=== PATIENT | male | born 1990 | race Caucasian/White ===

== ENCOUNTER 2022-07-11 01:11 | Inpatient (IN) | payer OTHER ==
[~2022-07-11] VITALS: Ht 175.3 cm; Wt 99.5 kg
[2022-07-11] MEDS ORDERED: ALBU90OI INH (01:37)
[2022-07-11 01:58] LABS: BASOPHILS ABSOLUTE AUTO 0.06 K/mm3 (0.00-0.23); BASOPHILS PERCENT AUTO 1 % (0-2); EOSINOPHILS ABSOLUTE AUTO 0.08 K/mm3 (0.00-0.68); EOSINOPHILS PERCENT AUTO 1 % (0-6); Hematocrit 41.1 % (37.0-53.0); Hemoglobin 13.9 g/dL (13.5-17.5); IMMATURE GRAN ABSOLUTE AUTO 0.05 K/mm3 (0.00-0.10); IMMATURE GRAN PERCENT AUTO 1 % (0-1); LYMPHOCYTES ABSOLUTE AUTO 2.11 K/mm3 (0.84-5.20); LYMPHOCYTES PERCENT AUTO 24 % (21-46); MONOCYTES ABSOLUTE AUTO 0.65 K/mm3 (0.16-1.47); MONOCYTES PERCENT AUTO 7 % (4-13); Mean Corpuscular HGB 30.3 pg (26.0-34.0); Mean Corpuscular HGB Conc 33.8 g/dL (31.5-36.5); Mean Corpuscular Volume 90 fL (80-100); NEUTROPHILS ABSOLUTE AUTO 5.87 K/mm3 (1.96-9.15); NEUTROPHILS PERCENT AUTO 67 % (41-73); Platelet Count 243 K/mm3 (150-400); RDW Coefficient Variation 13.3 % (11.7-14.2); RDW Standard Deviation 43.9 fL (35.1-46.3); Red Blood Cell Count 4.59 M/mm3 (4.30-5.90); White Blood Cell Count 8.82 K/mm3 (4.00-11.30)
[2022-07-11 02:17] LABS: Albumin, Blood 3.3 g/dL (3.4-5.0); Bilirubin, Total 0.4 mg/dL (0.1-1.0); Bun/Creatinine Ratio 22.5 (12.0-20.0); Calcium, Blood 8.1 mg/dL (8.5-10.1); Creatinine, Blood 0.8 mg/dL (0.60-1.20); Globulin, Blood 3.4 g/dL (2.2-4.0); Potassium, Blood 3.4 mmol/L (3.5-5.5); Total Protein, Blood 6.7 g/dL (6.4-8.2)
[2022-07-11 05:13] LABS: Influenza A, PCR NEGATIVE (NEGATIVE); Influenza B, PCR NEGATIVE (NEGATIVE); Resp Syncytial Virus, PCR NEGATIVE (NEGATIVE); SARS-Cov-2 (COVID-19) PCR, MMC NEGATIVE (NEGATIVE)
[2022-07-11 06:54] LABS: Creatine Kinase MB 4.7 ng/mL (0.0-3.6); Creatine Kinase MB Index 1.5 (0.0-4.0)
[2022-07-11 10:06] LABS: Base Excess Venous -0.4 mmol/L; Bicarbonate Venous 24.3 mmol/L (24.0-30.0); PCO2 Venous 37.9 mmHg (38-42); pH Blood Venous 7.41 (7.34-7.37)
[2022-07-11 16:32] LABS: CPK Creatine Kinase 171 U/L (39-308)
--- NOTE | 2022-07-11 17:00 | NUR ---
PT ARRIVED TO ROOM FROM ED AT 1500 AND ABLE TO TRANSFER SELF IN TO BED. 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 IRRITABLE MOOD. ORIENTED TO ROOM. ATE SOME FOOD, ADMIT COMPLETED AND FELL ASLEEP.
--- NOTE | 2022-07-11 17:01 | NUR ---
TOOK OVER CARE OF PT AT 1655 FROM DEANNE WU. PT RESTING IN BED AT THIS TIME WITH CALL LIGHT IN REACH. NO DISTRESS NOTED WILL CONTINUE TO MONITOR.
--- NOTE | 2022-07-11 18:21 | NUR ---
Patient ate dinner without complaints of n/v- currently laying in bed with eyes closed, no s/s distress- bed low position, call light within reach
--- NOTE | 2022-07-11 18:35 | NUR ---
call from tele- pt hr increased to 190 for 14 seconds- pt laying in bed/no s/s distress
--- NOTE | 2022-07-11 23:26 | NUR ---
REPORT GIVEN TO DAVID GALVIN RN, TO ASSUME CARE.
--- NOTE | 2022-07-11 23:45 | NUR ---
ASSUMED CARE OF PT. PT REPORTS HE IS "DOING BETTER." WHEN ASKED WHAT THIS MEANS, HE REPORTS "I HAVE FOOD." CALL LIGHT WITHIN REACH.
--- NOTE | 2022-07-12 03:05 | NUR ---
PT AWOKE, CALLED SAYING HE COULDN'T BREATH. PT IN LOW SEMI FOWLERS POSITION - TACHYPNIC. RT CALLED FOR BREATHING TREATMENT. PT INSTRUCTED ON SITTING AT THE EDGE OF THE BED, AND IN TRIPOD POSITION. PT REPORTS HE HAS ANXIETY/PANIC ATTACKS ALSO. INSTRUCTED PT ON CALMING TECHNIQUES. AFTER THESE TECHNIQUES, PT REPORTED FEELING "BETTER." SAID "THANK YOU." AWAITING ON RT. CALL LIGHT WITHIN REACH. BED IN LOW POSITION. FLUIDS AT BEDSIDE.
--- NOTE | 2022-07-12 03:30 | NUR ---
REPORT FROM RESPIRATORY, DURING HER TREATMENT, IS PT REPORTED CHEST PAIN WITH RADIATION TO BOTH ARMS. RN CALLED TO ROOM. PT REPORTS PAIN 6/10 TO MID STERNAL CHEST, BILATERAL ARM PAIN - PT DENIES JAW PAIN OR NAUSEA. EKG BEING PERFORMED. SEE VS. TROPONIN SCHEDULED FOR AM LAB DRAW. CALL PLACED TO [facility] [employer] FARMER - SHE REPORTED NSR.
--- NOTE | 2022-07-12 03:40 | NUR ---
I SPOKE TO DR. FABIAN, AND REPORTED EKG RESULTS, CHEST PAIN/ARM PAIN, LAST TROPONIN NORMAL, REPEAT TROPONIN THIS AM, VSS, AND HISTORY OF [facility], AND [facility], PCU [employer] OPERATOR HELPER REPORTS NSR. DR. FABIAN REPORTED TO "JUST WATCH HIM." FLUIDS AT BEDSIDE. PT THEN REQUESTING FOOD. CALL LIGHT WITHIN REACH. WILL CONTINUE TO MONITOR.
--- NOTE | 2022-07-12 05:00 | NUR ---
PT ON THE TELEPHONE, REPORTS HE IS "DOING FINE. THANK YOU." CALL LIGHT WITHIN REACH. BED IN LOW POSITION.
[2022-07-12 05:02] LABS: BASOPHILS ABSOLUTE AUTO 0.05 K/mm3 (0.00-0.23); BASOPHILS PERCENT AUTO 0 % (0-2); EOSINOPHILS ABSOLUTE AUTO 0.01 K/mm3 (0.00-0.68); EOSINOPHILS PERCENT AUTO 0 % (0-6); Hematocrit 43.8 % (37.0-53.0); Hemoglobin 14.3 g/dL (13.5-17.5); IMMATURE GRAN ABSOLUTE AUTO 0.08 K/mm3 (0.00-0.10); IMMATURE GRAN PERCENT AUTO 1 % (0-1); LYMPHOCYTES ABSOLUTE AUTO 2.24 K/mm3 (0.84-5.20); LYMPHOCYTES PERCENT AUTO 14 % (21-46); MONOCYTES ABSOLUTE AUTO 1.24 K/mm3 (0.16-1.47); MONOCYTES PERCENT AUTO 8 % (4-13); Mean Corpuscular HGB 29.7 pg (26.0-34.0); Mean Corpuscular HGB Conc 32.6 g/dL (31.5-36.5); Mean Corpuscular Volume 91 fL (80-100); Mean Platelet Volume 10.9 fL (9.1-12.4); NEUTROPHILS ABSOLUTE AUTO 12.87 K/mm3 (1.96-9.15); NEUTROPHILS PERCENT AUTO 78 % (41-73); Platelet Count 273 K/mm3 (150-400); RDW Coefficient Variation 13.7 % (11.7-14.2); RDW Standard Deviation 46.1 fL (35.1-46.3); Red Blood Cell Count 4.81 M/mm3 (4.30-5.90); White Blood Cell Count 16.49 K/mm3 (4.00-11.30)
[2022-07-12 05:29] LABS: Albumin/Globulin Ratio 0.8 (0.8-1.8); Bilirubin, Total 0.3 mg/dL (0.1-1.0); Bun/Creatinine Ratio 31.4 (12.0-20.0); Calcium, Blood 8.1 mg/dL (8.5-10.1); Creatinine, Blood 0.73 mg/dL (0.60-1.20); Globulin, Blood 3.7 g/dL (2.2-4.0); Phosphorus, Blood 2.8 mg/dL (2.5-4.9); Potassium, Blood 3.9 mmol/L (3.5-5.5); Total Protein, Blood 6.7 g/dL (6.4-8.2)
--- NOTE | 2022-07-12 06:15 | NUR ---
SHIFT SUMMARY - PT HAD ONE EPISODE OF FEELING "LIKE HE COULDN'T BREATH." PT WAS ALSO HAVING A PANIC ATTACK - BUT THIS ALL RESOLVED WITH CALMING TECHNIQUES AND RESPIRATORY THERAPY INTERVENTION. PT HAD CHEST PAIN/ARM PAIN SHORTLY AFTER THIS ABOVE EPISODE - SEE PREVIOUS NOTE REGARDING CHEST PAIN. PT REPORTED FEELING BETTER THIS AM. TROPONIN WITHIN NORMAL LIMITS THIS AM. CALL LIGHT WITHIN REACH. BED IN LOW POSITION. FLUIDS/FOOD AT BEDSIDE. WILL CONTINUE TO MONITOR UNTIL AM SHIFT CHANGE.
--- NOTE | 2022-07-12 19:43 | NUR ---
SHIFT SUMMARY PT HAD WHAT APPEARED TO BE A PANIC ATTACK THIS MORNING. NEB TX GIVEN AND TALKED WITH PT FOR SEVERAL MINUTES AND IT APPEARED TO IMPROVE. SAYS HE THINKS HE IS GOING TO LEAVE TOMORROW NO MATTER WHAT. REPORTS PAIN TO BACK IS BAD. TRAMADOL ORDERED AND GIVEN. K PAD OFFERED AND GIVEN. STATED NOTHING HELPED. ENCOURAGED HIM TO GET UP AND WALK AROUND ON THE UNIT AND REPORTED PAIN IN BACK BETTER AFTER. SOB WITH OVEREXERTION. IV LASIX GIVEN AND VOIDED A LARGE ABOUNT.
[2022-07-13 05:16] LABS: Anion Gap 7 mmol/L (6-16); Blood Urea Nitrogen 24 mg/dL (8-24); Bun/Creatinine Ratio 30.2 (12.0-20.0); CO2, Blood 25 mmol/L (21-32); Calcium, Blood 8.4 mg/dL (8.5-10.1); Chloride, Blood 106 mmol/L (98-108); Glomerular Filtration Rate 119 (60-); Glucose, Blood 164 mg/dL (70-99); Phosphorus, Blood 3.3 mg/dL (2.5-4.9); Potassium, Blood 3.7 mmol/L (3.5-5.5); Sodium, Blood 138 mmol/L (136-145)
--- NOTE | 2022-07-13 05:48 | NUR ---
PT ANXIOUS T/O NIGHT ENCOURAGED TO AMBULATE- PT C/O PAIN IN LOWER BACK WHICH IS CHRONIC -
[2022-07-13] MEDS ORDERED: NICO21TP TOP (13:40)
[2022-07-13] MEDS ORDERED: FURO40 PO (13:40)
[2022-07-13] MEDS ORDERED: METO25ER PO (13:40)
[2022-07-13] MEDS ORDERED: ENTRESTO 24 MG1 EACH PO (13:41)
[2022-07-13] MEDS ORDERED: POTCHL20ER PO (13:41)
--- NOTE | 2022-07-13 15:04 | NUR ---
PATIENT DISCHARGED HOME THIS AFTERNOON. TELE REMOVED AND SENT TO PCU. PATIENT EDUCATED ON ABSTINENCE FROM [facility]. EDUCATION PROVIDED ON NEW PRESCRIPTIONS. DC ORDERS INCLUDE PATIENT TO GET A PCP AND CANS VACUUM TESTER AND HAVING HIS PCP ORDER A BMP AND MONITOR KIDNEY FUNCTION WHILE ON ENTRESTO. PATIENT EXPLAINS HE IS LEAVING FOR [place] WHERE HE LIVES.
== END 2022-07-13 14:50 | disposition home or self-care (01) | DRG 291 ==
LOC: ER 01:11 → MEDS 06:09 → ERHOLD 06:09 → MEDS 14:50
PROVIDERS: Internal Medicine; Student in an Organized Health Care Education/Training Program; ADMIT Internal Medicine
DX: I50.21 Acute systolic (congestive) heart failure (principal); J96.01 Acute respiratory failure with hypoxia; E87.1 Hypo-osmolality and hyponatremia; F17.210 Nicotine dependence, cigarettes, uncomplicated; Z20.822 Contact with and (suspected) exposure to COVID-19; E87.6 Hypokalemia; F12.90 Cannabis use, unspecified, uncomplicated; J45.20 Mild intermittent asthma, uncomplicated; F15.10 Other stimulant abuse, uncomplicated
CPT/HCPCS: 0241U; 36415; 71045; 71046; 80053; 80069; 82550; 82553; 82803; 83880; 84100; 84145; 84484; 85025; 87040; 87070; 87205; 93005; 93010; 93306; 94640; 94664; 94760; 96365; 96366; 96368; 96372-59; 96375; 99285-25; A9270; J0456; J0696; J1100; J1650; J1940; J3370; J3480; J7050

== ENCOUNTER 2022-08-04 14:56 | Emergency (ER) | payer OTHER ==
[~2022-08-04] VITALS: Ht 175.3 cm; Wt 97.5 kg
[~2022-08-04 14:56] MED LIST: ALBU90OI INH; ENTRESTO 24 MG1 EACH PO; FURO40 PO; METO25ER PO; NICO21TP TOP; POTCHL20ER PO
[2022-08-04 15:52] LABS: BASOPHILS ABSOLUTE AUTO 0.07 K/mm3 (0.00-0.23); BASOPHILS PERCENT AUTO 1 % (0-2); EOSINOPHILS ABSOLUTE AUTO 0.24 K/mm3 (0.00-0.68); EOSINOPHILS PERCENT AUTO 2 % (0-6); Hematocrit 43.5 % (37.0-53.0); Hemoglobin 14.5 g/dL (13.5-17.5); IMMATURE GRAN ABSOLUTE AUTO 0.04 K/mm3 (0.00-0.10); IMMATURE GRAN PERCENT AUTO 0 % (0-1); LYMPHOCYTES ABSOLUTE AUTO 2.06 K/mm3 (0.84-5.20); LYMPHOCYTES PERCENT AUTO 20 % (21-46); MONOCYTES ABSOLUTE AUTO 0.73 K/mm3 (0.16-1.47); MONOCYTES PERCENT AUTO 7 % (4-13); Mean Corpuscular HGB Conc 33.3 g/dL (31.5-36.5); Mean Corpuscular Volume 90 fL (80-100); Mean Platelet Volume 10.2 fL (9.1-12.4); NEUTROPHILS ABSOLUTE AUTO 7.31 K/mm3 (1.96-9.15); NEUTROPHILS PERCENT AUTO 70 % (41-73); Platelet Count 236 K/mm3 (150-400); RDW Standard Deviation 42.7 fL (35.1-46.3); Red Blood Cell Count 4.84 M/mm3 (4.30-5.90); White Blood Cell Count 10.45 K/mm3 (4.00-11.30)
[2022-08-04 16:02] LABS: Albumin, Blood 3.1 g/dL (3.4-5.0); Albumin/Globulin Ratio 0.8 (0.8-1.8); Bilirubin, Total 0.4 mg/dL (0.1-1.0); Bun/Creatinine Ratio 19.7 (12.0-20.0); Calcium, Blood 8.4 mg/dL (8.5-10.1); Creatinine, Blood 0.86 mg/dL (0.60-1.20); Globulin, Blood 3.8 g/dL (2.2-4.0); Potassium, Blood 4.1 mmol/L (3.5-5.5); Total Protein, Blood 6.9 g/dL (6.4-8.2)
[2022-08-04 16:36] LABS: Influenza A, PCR NEGATIVE (NEGATIVE); Influenza B, PCR NEGATIVE (NEGATIVE); Resp Syncytial Virus, PCR NEGATIVE (NEGATIVE); SARS-Cov-2 (COVID-19) PCR, MMC NEGATIVE (NEGATIVE)
[2022-08-04] MEDS ORDERED: ALBU90OI INH (18:26)
[2022-08-04] MEDS ORDERED: LASIX40 MG PO (18:26)
[2022-08-04] MEDS ORDERED: POTA10T PO (18:28)
== END 2022-08-04 18:37 | disposition home or self-care (01) ==
LOC: ER 14:56
PROVIDERS: Student in an Organized Health Care Education/Training Program
DX: I50.1 Left ventricular failure, unspecified (principal); J45.909 Unspecified asthma, uncomplicated; F17.210 Nicotine dependence, cigarettes, uncomplicated; Z79.899 Other long term (current) drug therapy; Z20.822 Contact with and (suspected) exposure to COVID-19
CPT/HCPCS: 0241U; 36415; 71045; 71260; 80053; 83880; 84484; 85025; 85379; 93005; 93010; 94640; 94664; J1940; Q9967

== ENCOUNTER 2022-08-29 00:44 | Inpatient (IN) | payer OTHER ==
[~2022-08-29] VITALS: Ht 175.3 cm; Wt 98.9 kg
[~2022-08-29 00:44] MED LIST changes: +LASIX40 MG PO; +POTA10T PO
--- NOTE | 2022-08-29 03:11 | NUR ---
ADMIT NOTE HANDOFF RECEIVED FROM [facility] DEANNE SUTTON. PT IS A DIRECT ADMIT. HOSPITALIST AND RESIDENT IN ROOM FOR ASSESSMENT SOON UPON PT'S ARRIVAL. PT ORIENTED TO UNIT. PERSONAL POSSESSIONS WITH PT. CALL BUTTON WITHIN REACH.
[2022-08-29 05:58] LABS: BASOPHILS ABSOLUTE AUTO 0.07 K/mm3 (0.00-0.23); BASOPHILS PERCENT AUTO 1 % (0-2); EOSINOPHILS ABSOLUTE AUTO 0.18 K/mm3 (0.00-0.68); EOSINOPHILS PERCENT AUTO 2 % (0-6); Hematocrit 43.5 % (37.0-53.0); Hemoglobin 14.3 g/dL (13.5-17.5); IMMATURE GRAN ABSOLUTE AUTO 0.03 K/mm3 (0.00-0.10); IMMATURE GRAN PERCENT AUTO 0 % (0-1); LYMPHOCYTES ABSOLUTE AUTO 2.51 K/mm3 (0.84-5.20); LYMPHOCYTES PERCENT AUTO 27 % (21-46); MONOCYTES ABSOLUTE AUTO 0.68 K/mm3 (0.16-1.47); MONOCYTES PERCENT AUTO 7 % (4-13); Mean Corpuscular HGB 29.5 pg (26.0-34.0); Mean Corpuscular HGB Conc 32.9 g/dL (31.5-36.5); Mean Corpuscular Volume 90 fL (80-100); Mean Platelet Volume 10.7 fL (9.1-12.4); NEUTROPHILS ABSOLUTE AUTO 5.88 K/mm3 (1.96-9.15); NEUTROPHILS PERCENT AUTO 63 % (41-73); Platelet Count 245 K/mm3 (150-400); RDW Coefficient Variation 13.3 % (11.7-14.2); RDW Standard Deviation 43.8 fL (35.1-46.3); Red Blood Cell Count 4.85 M/mm3 (4.30-5.90); White Blood Cell Count 9.35 K/mm3 (4.00-11.30)
[2022-08-29 06:22] LABS: Albumin/Globulin Ratio 0.8 (0.8-1.8); Bilirubin, Total 0.6 mg/dL (0.1-1.0); Calcium, Blood 8.6 mg/dL (8.5-10.1); Creatinine, Blood 1.1 mg/dL (0.60-1.20); Globulin, Blood 3.6 g/dL (2.2-4.0); Potassium, Blood 3.9 mmol/L (3.5-5.5); Total Protein, Blood 6.6 g/dL (6.4-8.2)
--- NOTE | 2022-08-29 16:32 | NUR ---
SHIFT SUMMARY- VSS. PT APPETITE OK. CALL APROPIATELY. SLEPT MOST OF SHIFT. NO C/O PAIN DURING SHIFT. IV PATENT. INDEPENDANT IN ROOM. SOME WHEEZING HEARD IN L SIDE LUNG/ULL. EDEMA 3+ BLL. CALL LIGHT IN REACH. WILL CONTINUE TO MONITOR.
--- NOTE | 2022-08-30 03:24 | NUR ---
Patient resting in room, no complaints of pain or discomfort.
[2022-08-30 06:22] LABS: Bun/Creatinine Ratio 18.3 (12.0-20.0); Calcium, Blood 8.9 mg/dL (8.5-10.1); Creatinine, Blood 1.15 mg/dL (0.60-1.20); Magnesium, Blood 2.3 mg/dL (1.6-2.4); Potassium, Blood 3.8 mmol/L (3.5-5.5)
--- NOTE | 2022-08-30 12:58 | NUR ---
PT RESTING QUIETLY AT START OF SHIFT. WOKE EASILY FOR CARE. INDEPENDENT IN AND TO BTHRM. NO C/O, JUST REQUESTED MORE FOOD. DR LANG IN TO SEE PT AND DISCUSS PLAN OF CARE. PT CLEAR FOR D/C. PT TO OBTAIN AND F/U WITH PCP. D/C ORDERS PLACED. MEDS FAXED TO [facility] IN [facility], PER PT REQUEST. TOOLROOM KEEPER IN TO TALK WITH PT. LOCAL DR'S LIST OBTAINED AND PROVIDED FOR PT. TRANSPORTATION ARRANGED TO [facility], PER PT REQUEST. PHARMACY IN TO TALK WITH PT AND DISCUSS D/C MEDICATIONS. IV SITE AND TELE D/C'D WNL'S. PT ABLE TO DRESS HIMSELF AND GATHER BELONGINGS. PT ASSISTED DOWN TO ER WAITING AREA VIA W/C, FOR TAXI. DENIED FURTHER NEEDS.
== END 2022-08-30 11:58 | disposition home or self-care (01) | DRG 293 ==
LOC: MEDS 00:44
PROVIDERS: Family Medicine; Student in an Organized Health Care Education/Training Program; ADMIT Family Medicine
DX: I50.23 Acute on chronic systolic (congestive) heart failure (principal); J45.909 Unspecified asthma, uncomplicated; F15.10 Other stimulant abuse, uncomplicated; F17.210 Nicotine dependence, cigarettes, uncomplicated; Z79.899 Other long term (current) drug therapy; Z79.51 Long term (current) use of inhaled steroids; Z79.01 Long term (current) use of anticoagulants
CPT/HCPCS: 36415; 80048; 80053; 83735; 85025; 96374; A9270; G0378; J1650; J1940

== ENCOUNTER 2024-04-02 08:23 | Inpatient (IN) | payer OTHER ==
[~2024-04-02] VITALS: Ht 175.3 cm; Wt 92.6 kg
[2024-04-02] MEDS ORDERED: Acetaminophen 650 MG Supp PR PRN (09:15)
[2024-04-02] MEDS ORDERED: Acetaminophen 325 MG TABLET PO PRN (09:20)
[2024-04-02] MEDS ORDERED: Zolpidem Tartrate 5 MG Tab PO PRN (09:20)
[2024-04-02] MEDS ORDERED: Ondansetron HCl 2 MG / ML 2ML Vial IV PRN (09:20)
[2024-04-02] MEDS ORDERED: Morphine Sulfate IR 15 MG Tab PO PRN (09:20)
[2024-04-02] MEDS ORDERED: Furosemide 10 MG/ML 4ML Vial IV ONE (09:40)
[2024-04-02 10:00] VITALS: BP 102/62
[2024-04-02 10:01] LABS: Anti-Xa UFH, PHA Monitoring <0.10 IU/mL; International Normalized Ratio 1.12; Prothrombin Time Results 11.9 Sec (9.7-11.5)
[2024-04-02] MEDS ORDERED: Dose Adjust by Pharmacy XX STA (10:07)
[2024-04-02] MEDS ORDERED: Heparin Sodium,Porcine/0.5 NS 500 ML IV SCH (10:10)
[2024-04-02] MEDS ORDERED: Heparin Sodium 5000 Units/ML 1ML MDV IV ONE (10:10)
[2024-04-02 10:27] LABS: BASOPHILS ABSOLUTE AUTO 0.07 K/mm3 (0.00-0.23); BASOPHILS PERCENT AUTO 1 % (0-2); EOSINOPHILS ABSOLUTE AUTO 0.17 K/mm3 (0.00-0.68); EOSINOPHILS PERCENT AUTO 1 % (0-6); Hematocrit 42.7 % (37.0-53.0); Hemoglobin 13.8 g/dL (13.5-17.5); IMMATURE GRAN ABSOLUTE AUTO 0.03 K/mm3 (0.00-0.10); IMMATURE GRAN PERCENT AUTO 0 % (0-1); LYMPHOCYTES ABSOLUTE AUTO 1.25 K/mm3 (0.84-5.20); LYMPHOCYTES PERCENT AUTO 10 % (21-46); MONOCYTES ABSOLUTE AUTO 0.87 K/mm3 (0.16-1.47); MONOCYTES PERCENT AUTO 7 % (4-13); Mean Corpuscular HGB Conc 32.3 g/dL (31.5-36.5); Mean Corpuscular Volume 87 fL (80-100); Mean Platelet Volume 10.7 fL (9.1-12.4); NEUTROPHILS ABSOLUTE AUTO 9.72 K/mm3 (1.96-9.15); NEUTROPHILS PERCENT AUTO 80 % (41-73); Platelet Count 222 K/mm3 (150-400); RDW Coefficient Variation 15.1 % (11.7-14.2); RDW Standard Deviation 47.7 fL (35.1-46.3); Red Blood Cell Count 4.92 M/mm3 (4.30-5.90); White Blood Cell Count 12.11 K/mm3 (4.00-11.30)
[2024-04-02] MEDS ORDERED: ALBU2.5V5 INH (11:09)
[2024-04-02] MEDS ORDERED: ATOR40TA PO (11:10)
[2024-04-02] MEDS ORDERED: BUDESONIDE-FO10.2 G3 INH (11:12)
[2024-04-02] MEDS ORDERED: BUSP5 PO (11:13)
[2024-04-02] MEDS ORDERED: [UNRECOGNIZED DRUG - OTHER] PO (11:16)
[2024-04-02] MEDS ORDERED: JARDIANCE10 MG PO (11:17)
[2024-04-02] MEDS ORDERED: Isosorbide Mono30 MG PO (11:17)
[2024-04-02] MEDS ORDERED: Lisinopril2.5 MG PO (11:19)
[2024-04-02] MEDS ORDERED: MAGNESIUM OXID400 M1 PO (11:20)
[2024-04-02] MEDS ORDERED: METO2.5 PO (11:21)
[2024-04-02] MEDS ORDERED: METO50ER PO (11:22)
[2024-04-02] MEDS ORDERED: NITR.4SL SL (11:23)
[2024-04-02] MEDS ORDERED: ONDA4 PO (11:23)
[2024-04-02] MEDS ORDERED: POTCHL20ER PO (11:24)
[2024-04-02] MEDS ORDERED: TORSE20 PO (11:25)
[2024-04-02] MEDS ORDERED: TIOT18 INH (11:25)
[2024-04-02] MEDS ORDERED: TRAZ50 PO (11:26)
[2024-04-02] MEDS ORDERED: TraZODone HCl 100 MG Tab PO PRN (11:55)
[2024-04-02] MEDS ORDERED: Nitroglycerin 0.4 MG SUBL SL PRN (12:00)
[2024-04-02] MEDS ORDERED: Tiotropium Bromide 2.5 MCG/ACT MIST INHAL (10 ACT/4 GM) INH SCH (12:00)
[2024-04-02] MEDS ORDERED: Ipratropium/Albuterol SulF 2.5-0.5MG/3 ML Amp INH SCH (12:10)
[2024-04-02] MEDS ORDERED: Budesonide 1 MG/2 ML RESP INH SCH (12:15)
[2024-04-02] MEDS ORDERED: Albuterol 2.5 MG/3 ML VIAL INH PRN (12:15)
[2024-04-02] MEDS ORDERED: Mometasone/Formoterol MDI 200/5 mcg 13 GM INH SCH (12:25)
[2024-04-02 12:39] VITALS: BP 111/88
[2024-04-02] MEDS ORDERED: BusPIRone HCl 5 MG Tab PO SCH (14:00)
[2024-04-02] MEDS ORDERED: Famotidine 20 MG Tab PO SCH (16:30)
--- NOTE | 2024-04-02 16:44 | NUR ---
PT ARRIVED TO PCU 05 AT 0945 VIA EMS FROM [facility]. PT IS A&OX3, AXIOUS, DYSPNIC WITH EXERTION. THIS RN HELPED PT SETTLE INTO BED, ASSESSMENT COMPLETED AND VS TAKEN. SEE DOCUMENTATION. DR DHALIWAL NOTIFIED OF PT'S ARRIVAL AND SHE IS AT BEDSIDE QUICKLY TO EVALUATE. ORDERS PLACED. DR REID ON UNIT AND RECEIVED DIRECT CONSULT FROM DR DHALIWAL, MORE ORDERS PLACED. LABS AND ECHO COMPLETED. HEPARIN GTT HUNG. PT MEDICATED PER MD ORDERS AND APPEARED TO BE RESTING COMFORTABLY IN BED FOR THE REST OF THE AFTERNOON. THIS RN REVIEWED DR REID'S CONSULT NOTE FOR TODAY, CALLED DR DHALIWAL REGARDING THE HEPARIN GTT. OK TO DISCONTINUE AT THIS TIME. PLEASE REVIEW DR REID'S CONSULT NOTE FOR DETAILS. PT IS NOTED TO HAVE AN ODD AFFECT, OFTEN CRYING WHEN STAFF IS IN THE ROOM, BUT SLEEPING WHEN LEFT UNDISTURBED. CRIES OUT DURING LAB DRAWS. ABLE TO MAKE NEEDS KNOWN AND USE CALL LIGHT EFFECTIVELY. ANXIOUS AT TIMES. COOPERATIVE WITH CARE. 1600ML/DAY FLUID RESTRICTION, PT IS NOT COMPLIANT WITH THIS. NO ACUTE CHANGES T/O THE SHIFT. WILL GIVE REPORT TO NOC SHIFT RN.
[2024-04-02 17:17] VITALS: BP 110/77
[2024-04-02] MEDS ORDERED: Bumetanide 0.25 MG/ML 4ML ViaL IV SCH (18:00)
[2024-04-02 20:08] VITALS: BP 109/75
[2024-04-02] MEDS ORDERED: Lactobacil 2-S.Thermo-Bifido 1 1 Cap PO SCH (21:00)
[2024-04-02] MEDS ORDERED: Metoprolol Tartrate 25 MG Tab PO SCH (21:00)
[2024-04-03 00:33] VITALS: BP 108/77
[2024-04-03 01:31] LABS: U Amphetamine Screen DETECTED; U Barbituate Screen Not Detected; U Benzodiazapine Screen Not Detected; U Buprenorphine Screen Not Detected; U Cannabinoids Screen Not Detected; U Cocaine Screen Not Detected; U Methadone Screen Not Detected; U Methamphetamine Screen DETECTED; U Opiates Screen DETECTED; U Oxycodone Screen Not Detected; U Phencyclidine Screen Not Detected
[2024-04-03 03:19] VITALS: BP 105/74
[2024-04-03 04:38] LABS: BASOPHILS ABSOLUTE AUTO 0.07 K/mm3 (0.00-0.23); BASOPHILS PERCENT AUTO 1 % (0-2); EOSINOPHILS ABSOLUTE AUTO 0.19 K/mm3 (0.00-0.68); EOSINOPHILS PERCENT AUTO 2 % (0-6); Hematocrit 43.1 % (37.0-53.0); Hemoglobin 13.8 g/dL (13.5-17.5); IMMATURE GRAN ABSOLUTE AUTO 0.03 K/mm3 (0.00-0.10); IMMATURE GRAN PERCENT AUTO 0 % (0-1); LYMPHOCYTES ABSOLUTE AUTO 1.73 K/mm3 (0.84-5.20); LYMPHOCYTES PERCENT AUTO 17 % (21-46); MONOCYTES ABSOLUTE AUTO 0.72 K/mm3 (0.16-1.47); MONOCYTES PERCENT AUTO 7 % (4-13); Mean Corpuscular HGB 28.2 pg (26.0-34.0); Mean Corpuscular Volume 88 fL (80-100); Mean Platelet Volume 10.4 fL (9.1-12.4); NEUTROPHILS ABSOLUTE AUTO 7.19 K/mm3 (1.96-9.15); NEUTROPHILS PERCENT AUTO 72 % (41-73); Platelet Count 213 K/mm3 (150-400); RDW Coefficient Variation 15.6 % (11.7-14.2); RDW Standard Deviation 50.6 fL (35.1-46.3); Red Blood Cell Count 4.89 M/mm3 (4.30-5.90); White Blood Cell Count 9.93 K/mm3 (4.00-11.30)
[2024-04-03 05:19] LABS: Albumin, Blood 2.9 g/dL (3.4-5.0); Albumin/Globulin Ratio 0.7 (0.8-1.8); Bilirubin, Total 0.7 mg/dL (0.1-1.0); Bun/Creatinine Ratio 22.8 (12.0-20.0); Calcium, Blood 8.5 mg/dL (8.5-10.1); Creatinine, Blood 0.97 mg/dL (0.60-1.20); Globulin, Blood 4.1 g/dL (2.2-4.0); Potassium, Blood 2.8 mmol/L (3.5-5.5)
[2024-04-03] MEDS ORDERED: NS 250 ML IV PRN (05:50)
--- NOTE | 2024-04-03 05:54 | NUR ---
SHIFT SUMMARY PATIENT LETHARGIC AND DROWSY OVERNIGHT, ORIENTED X4. PATIENT DENIED HAVING ANY CHEST PAIN OR SHORTNESS OF BREATH. VITAL SIGNS STABLE, NO EVENTS ON TELE. INFORMED DR NEGRON THIS MORNING THAT THE PATIENT'S POTASSIUM WAS 2.8 THIS MORNING. NO OTHER ISSUES NOTED. WILL CONTINUE TO MONITOR. CALL LIGHT WITHIN REACH.
[2024-04-03] MEDS ORDERED: Potassium Chl 20MEQ/Water100ML 100 ML IV ONE (06:00)
[2024-04-03] MEDS ORDERED: Potassium Chloride 10 Meq Tablet SA PO SCH (06:00)
[2024-04-03 08:15] VITALS: BP 105/83
[2024-04-03] MEDS ORDERED: Metolazone 2.5 MG Tab PO ONE (08:30)
[2024-04-03] MEDS ORDERED: OxyCODONE HCL 5 MG TAB PO PRN (08:30)
[2024-04-03] MEDS ORDERED: Nicotine 21 MG PATCH TOP SCH (09:00)
[2024-04-03] MEDS ORDERED: Empagliflozin 10 MG TAB PO SCH (09:00)
[2024-04-03] MEDS ORDERED: Isosorbide Mononitrate 30 MG TABCR PO SCH (09:00)
[2024-04-03] MEDS ORDERED: Atorvastatin 40 MG Tab PO SCH (09:00)
[2024-04-03 09:54] LABS: Bun/Creatinine Ratio 22.4 (12.0-20.0); Calcium, Blood 8.6 mg/dL (8.5-10.1); Creatinine, Blood 0.98 mg/dL (0.60-1.20); Potassium, Blood 3.5 mmol/L (3.5-5.5)
--- NOTE | 2024-04-03 10:33 | NUR ---
AM NOTE this rn assumed care at 0700. bp stable. ferbiel at 100.3, see vital section. spo2 >94% on room air. tele sinustach 100s. patient is alert and oriented x4. neuro is intact. patient is able to uses call light. denies chest pain/pressure or shortness of breath. reports generalized pain and is medicated per emar. see emar for addmistration and reassessment. patient is independent in adls. patient mood/affect is liable, withdrawn, irritable, and neutral. patient is cooperative with care. see shift assessment for further detials. patient had a shower this am. plan of care up to date at this time.
--- NOTE | 2024-04-03 12:17 | NUR ---
UPDATE md king in to see patient. patient switched to medical status. md king will be in contact with cardiology to see if patient is okay to discharge today.
[2024-04-03 16:36] VITALS: BP 83/71
--- NOTE | 2024-04-03 17:49 | NUR ---
DISCHARGE this rn went over discharge education with the patient and ivs removed. this rn stressed the importance quitting meth and the effects it has on the heart. patient verbalized understranding. patient to call garbage person office to set up follow up appointment and to call pcp for follow up appointment. patient verbalized understanding. patient began to be tearful stating "im only 33" this rn asked what the patient meant and patient expressed feelings of regret with choices the patient has made with his life stating " i lost my house and my family". this rn encouraged the patient can improve from current situation with quitting meth to improve heart function and taking prescribed medications. patient verbalized understanding and voiced hopeful thinking with current partner and ways to improve. patient left with all belonings to [facility] for yellow cab taxi back to his home in [place].
== END 2024-04-03 17:30 | disposition home or self-care (01) | DRG 280 ==
LOC: PCU 08:23
PROVIDERS: Family Medicine; ADMIT Hospitalist
DX: I11.0 Hypertensive heart disease with heart failure (principal); I50.43 Acute on chronic combined systolic (congestive) and diastolic (congestive) heart failure; I21.A1 Myocardial infarction type 2; J45.909 Unspecified asthma, uncomplicated; E78.5 Hyperlipidemia, unspecified; I27.20 Pulmonary hypertension, unspecified; I08.3 Combined rheumatic disorders of mitral, aortic and tricuspid valves; F15.10 Other stimulant abuse, uncomplicated; F17.200 Nicotine dependence, unspecified, uncomplicated
CPT/HCPCS: 36415; 80048; 80053; 84484; 85025; 85520; 85610; 93306; 94640; 94664; 94760; 94762; A9270; J1644; J1940; J2405; J3480; J7050; J7626